=== PATIENT | female | born 1970 | race Caucasian/White ===

== ENCOUNTER → 2016-05-14 | Outpatient (CLI) | payer OTHER ==
[~2016-05-14] MED LIST: DULO60CA44 PO; FOLI1TAB7 PO; LEVO25TA PO; METHOTREXATE INJ; MONT1TAB3 PO
[2016-05-14 08:24] LABS: BASO % 0.1 %; BASO ABS # 0.01 K/uL (0-0.2); COMPLETE YES; EOS % 0.4 %; HEMATOCRIT 41.1 % (37-47); IG% 0.4 %; LYMPH % 15.3 %; LYMPH ABS # 1.75 K/uL (1.2-3.4); MEAN CELL VOLUME 92.8 fL (80-100); MEAN CORPUSCULAR HEMOGLOBIN 32.1 pg (25-34); MEAN CORPUSCULAR HGB CONC 34.5 g/dl (32-36); MEAN PLATELET VOLUME 9.5 fL (7.4-10.4); MONO % 9.8 %; PLATELET COUNT 217 K/uL (130-400); RED BLOOD COUNT 4.43 M/uL (4.2-5.4); WHITE BLOOD COUNT 11.41 K/uL (4.8-10.8)
[2016-05-14 08:41] LABS: ALT/SGPT 27 U/L (12-78); BLOOD UREA NITROGEN 16 mg/dl (7-18); BUN/CREATININE RATIO 22.6 (10-20); CALCIUM 8.6 mg/dl (8.5-10.1); CARBON DIOXIDE 29 mmol/L (21-32); CHLORIDE 102 mmol/L (98-107); GLUCOSE 97 mg/dl (70-99); POTASSIUM 3.5 mmol/L (3.5-5.1); SODIUM 139 mmol/L (136-145)
[2016-05-14 08:44] LABS: ALB/GLOB RATIO 0.8 (0.9-2); ALKALINE PHOSPHATASE 60 U/L (45-117); AST/SGOT 14 U/L (15-37)
[2016-05-15 10:48] LABS: C-REACTIVE PROT HIGHSEN 14.9 MG/L
== END | disposition home or self-care (01) ==
LOC: C.LABSPEC 10:18
PROVIDERS: ATTEND Internal Medicine
DX: M06.4 Inflammatory polyarthropathy (principal)

== ENCOUNTER → 2016-06-04 | Outpatient (CLI) | payer OTHER ==
[2016-06-06 14:11] LABS: ANTI-SS-A <1.0 NEG AI (<1.0 NEG); ANTI-SS-B <1.0 NEG AI (<1.0 NEG)
== END | disposition home or self-care (01) ==
LOC: C.LAB 09:52
PROVIDERS: ATTEND Internal Medicine
DX: M35.00 Sjogren syndrome, unspecified (principal)

== ENCOUNTER → 2016-08-29 | Outpatient (CLI) | payer OTHER ==
[2016-08-29 10:46] LABS: MEAN CELL VOLUME 97.7 fL (80-100); MEAN CORPUSCULAR HEMOGLOBIN 34.3 pg (25-34); MEAN CORPUSCULAR HGB CONC 35.1 g/dl (32-36); MEAN PLATELET VOLUME 9.5 fL (7.4-10.4); PLATELET COUNT 248 K/uL (130-400); RED BLOOD COUNT 3.99 M/uL (4.2-5.4); WHITE BLOOD COUNT 10.56 K/uL (4.8-10.8)
[2016-08-29 11:20] LABS: ALT/SGPT 23 U/L (12-78); BLOOD UREA NITROGEN 13 mg/dl (7-18); BUN/CREATININE RATIO 18.8 (10-20); CARBON DIOXIDE 23 mmol/L (21-32); CHLORIDE 106 mmol/L (98-107); CREATININE 0.69 mg/dl (0.60-1.20); GLUCOSE 99 mg/dl (70-99); POTASSIUM 3.9 mmol/L (3.5-5.1); SODIUM 139 mmol/L (136-145); URIC ACID 4.3 mg/dl (2.6-7.2)
[2016-08-29 11:31] LABS: ALB/GLOB RATIO 0.9 (0.9-2); ALKALINE PHOSPHATASE 57 U/L (45-117); AST/SGOT 13 U/L (15-37); RHEUMATOID FACTOR < 10.0 U/mL (0-15); THYROID STIMULATING HORMONE 0.978 uIu/ml (0.300-4.500)
[2016-09-01 11:21] LABS: 18KDIGG BAND NONREACTIVE (NONREACTIVE); 23KDIGG BAND NONREACTIVE (NONREACTIVE); 23KDIGM BAND REACTIVE (NONREACTIVE); 28KDIGG BAND NONREACTIVE (NONREACTIVE); 30KDIGG BAND NONREACTIVE (NONREACTIVE); 39KDIGG BAND NONREACTIVE (NONREACTIVE); 39KDIGM BAND NONREACTIVE (NONREACTIVE); 41KDIGG BAND REACTIVE (NONREACTIVE); 41KDIGM BAND REACTIVE (NONREACTIVE); 45KDIGG BAND NONREACTIVE (NONREACTIVE); 58KDIGG BAND NONREACTIVE (NONREACTIVE); 66KDIGG BAND REACTIVE (NONREACTIVE); 93KDIGG BAND NONREACTIVE (NONREACTIVE)
[2016-09-05 23:31] LABS: CYTOMEGALOVIRUS IGG AB <0.60 U/ML; EHRLICHIA CHAFF IGG AB <1:64 (<1:64); EHRLICHIA CHAFF IGM AB <1:20 (<1:20)
[2016-09-08 12:50] LABS: REFERENCE QUEST TEST REPORT
== END | disposition home or self-care (01) ==
LOC: C.LAB 12:53
PROVIDERS: ATTEND Internal Medicine
DX: A69.20 Lyme disease, unspecified (principal); M25.50 Pain in unspecified joint; R53.83 Other fatigue

== ENCOUNTER → 2016-10-07 | Outpatient (CLI) | payer OTHER ==
[2016-10-07 15:02] LABS: ESTIMATED AVERAGE GLUCOSE 105 mg/dl; HA1C FLAG Normal (Normal)
[2016-10-07 15:12] LABS: BLOOD UREA NITROGEN 11 mg/dl (7-18); GLUCOSE 82 mg/dl (70-99); RHEUMATOID FACTOR < 10.0 U/mL (0-15)
[2016-10-07 15:23] LABS: THYROID STIMULATING HORMONE 0.871 uIu/ml (0.300-4.500)
--- NOTE | 2016-11-01 09:12 | CODING QUERY NO DIAGNOSIS ---
TREATMENT RENDERED WITHOUT A DIAGNOSIS To promote full compliance with coding requirements relating to patient care, physician participation is requested in all cases of anesthesiology fellow uncertainty. Please assist us with providing a diagnosis/symptom for the test(s) below: A diagnosis/symptom was not documented on your Order. A valid diagnosis/symptom is required to bill all insurances. Please remember that we are unable to code a diagnosis of rule out, probable, possible, questionable, or suspected. Tests that require a diagnosis: * SAHIL SCREEN DIAGNOSIS: * BLOOD UREA NITROGEN DIAGNOSIS: * CREATININE DIAGNOSIS: * GLUCOSE DIAGNOSIS: * RHEUMATOID FACTOR DIAGNOSIS: * TSH DIAGNOSIS: * ERYTHROCYTE SEDIMENTATION RATE DIAGNOSIS: * HEMOGLOBIN A1C DIAGNOSIS: * VITAMIN B12 DIAGNOSIS: Provider Signature: Date: Thank you Ruth Sims [employer] Once completed, please kindly fax back to [phone] For questions please call [phone]
== END | disposition home or self-care (01) ==
LOC: C.LAB 16:38
PROVIDERS: ATTEND Podiatrist Foot & Ankle Surgery
DX: M77.32 Calcaneal spur, left foot (principal); M72.2 Plantar fascial fibromatosis; M05.672 Rheumatoid arthritis of left ankle and foot with involvement of other organs and systems; R26.2 Difficulty in walking, not elsewhere classified

== ENCOUNTER → 2016-10-29 | Outpatient (CLI) | payer OTHER ==
--- NOTE | 2016-10-29 11:34 | DIAGNOSTIC IMAGING REPORT ---
MRI OF THE LEFT ANKLE/HINDFOOT WITHOUT CONTRAST CLINICAL HISTORY: Left ankle and foot pain. COMPARISON STUDY: None. TECHNIQUE: Utilizing a 1.5 Makenzie magnet and dedicated coil, multiplanar, multiecho imaging of the left ankle and hindfoot was performed without intravenous or intraarticular contrast. In addition, coronal T1 and STIR imaging of the entire left foot was performed. FINDINGS: Alignment of the left ankle is anatomic. Talar dome is intact. No osteochondral abnormality is present. Achilles tendon is normal. There is minimal posterior calcaneal spurring. Moderate plantar calcaneal spurring is noted with minimal increased T2 signal adjacent to the proximal plantar fascia. The findings may reflect mild plantar fasciitis. There is minimal increased signal within the adjacent calcaneus. No fracture or suspicious marrow replacement is present. Tarsometatarsal joints are intact. Flexor, extensor and peroneal tendons are intact. There is moderate subcutaneous edema of the left ankle and hindfoot as well as mild subcutaneous edema of the dorsal left midfoot. No erosions are identified by MRI. No mass or fluid collection is identified on this examination. Intrinsic ligaments of the left ankle appear intact. IMPRESSION: 1. Moderate plantar calcaneal spurring with minimal increased T2 signal within the adjacent soft tissues/calcaneus. The findings may reflect mild plantar fasciitis. 2. Moderate subcutaneous edema of the left ankle/hindfoot. 3. No fracture. Intact flexor, extensor and peroneal tendons. Electronically signed by: Roderick Harrison M.D. 10/29/2016 11:32 AM Dictated Date/Time: 10/29/2016 11:22 AM
== END | disposition home or self-care (01) ==
LOC: C.MRI 09:37
PROVIDERS: ATTEND Podiatrist Foot & Ankle Surgery
DX: M25.872 Other specified joint disorders, left ankle and foot (principal); M76.892 Other specified enthesopathies of left lower limb, excluding foot; M77.32 Calcaneal spur, left foot

== ENCOUNTER → 2016-11-18 | Day surgery (SDC) | payer OTHER ==
[2016-11-13 10:11] VITALS: BMI 44.0
--- NOTE | 2016-11-17 09:53 | HISTORY & PHYSICAL EXAMINATION ---
DATE OF ADMISSION: 11/18/2016 HISTORY OF PRESENT ILLNESS: A 46-year-old female presents for followup evaluation of ankle pain, requesting surgical intervention. Condition is located on the left ankle. Pain is described as aching, constant sharp with soreness at all times. She rates this discomfort as a 7 on a 10 point scale on the left ankle. She is experiencing aching and swelling throughout the day. She notes that she has been having problems on and off with her left ankle for about 2 years. She was first diagnosed with rheumatoid arthritis 8 months ago. She notes left ankle joint is the most painful for her. She also notes knee pain. She notes injection did not help the condition, NSIDS did not help the condition, and strapping did not help the condition. All other treatments have included MRI, radiographs in nature and severity of pain and discomfort, she is requesting surgical intervention. PAST SURGICAL HISTORY: Gallbladder removal in 1994, hysterectomy in 2008. PAST MEDICAL HISTORY: Lyme disease, asthma, rheumatoid arthritis, depression, anxiety disorder. MEDICATIONS: Synthroid; folic acid; Singulair; methotrexate; Cymbalta, capsulitis. ALLERGIES: No known medical allergies. FAMILY HISTORY: Arthritis, Alzheimer's disease, anxiety, stress disorder, depression, diabetes, heart problems, heart attack, hypertension, high cholesterol, stroke. SOCIAL HISTORY: The patient admits to alcohol use, drinking described as social. REVIEW OF SYSTEMS: Unremarkable except chief complaint. PHYSICAL EXAMINATION: VITAL SIGNS: BP 112/68. Height 5 feet 6 inches, weight 312 pounds, body mass index 50. CONSTITUTIONAL: The patient appears well-developed and nourished with good attention to body grooming and habitus. HEAD AND FACE: Head is normocephalic and atraumatic without any gross head, face, or neck masses. EYES: Conjunctival and pupillary accommodation is normal. EARS, NOSE, MOUTH, AND THROAT: Unremarkable. NECK: Neck is supple. Trachea is midline without any adenopathy or crepitance palpable. CARDIOVASCULAR: Normal S1, S2 without murmur, gallops, rubs, or clicks noted. Cardiovascular exam is normal. RESPIRATORY: Chest is symmetric. No scars are visible. No port or pacemaker. LUNGS: Clear to auscultation bilaterally and equal. GASTROINTESTINAL: Abdominal organs, bladder, and kidneys show no abnormalities, masses, tenderness, or rigidity. LYMPHATIC: No popliteal, inguinal, or supraclavicular lymphadenopathy noted. LOWER EXTREMITY VASCULAR: DP palpable. PT palpable. DERMATOLOGIC: No skin rash, subcutaneous nodules, lesions, or ulcers observed. NEUROLOGICAL: Touch, pin, vibratory pain, proprioception sensations are normal. Deep tendon reflexes normal. MUSCULOSKELETAL: Muscle tone is normal. Muscle strength 5/5 all groups tested and anterior left lateral malleolus shows evidence of capsulitis with pain, diffuse over the joint swelling with decreased range of motion. Examination of the heel the plantar medial aspect of the calcaneus on the left, pain on deep palpation, decreased ankle joint range of motion with knee flexed and extended. DATA: MRI of the left ankle on 10/29/2016 shows minimal posterior calcaneal spur and moderate plantar calcaneal with signal, adjacent soft tissue in the calcaneus, findings may reflect plantar fasciitis. IMPRESSION: 1. Ankle joint capsulitis, left. 2. Degenerative joint disease, left. 3. Rheumatoid arthritis with involvement left ankle. 4. Heel spur syndrome, left. 5. Plantar fasciitis, left. 6. Equinus. 7. Difficulty walking. 8. Pain lower extremity. PLAN: I discussed the most common etiology of discomfort. Treatment consisted of rest, ice, analgesics, nonsteroidal, physical therapy, steroid injections and orthotics. Due to the nature and severity of the discomfort, she is requesting surgical intervention. She is aware of the surgery will not improved heel pain; however, she notes all of her symptoms and the majority of her symptoms are located in the left ankle. This is being performed for relief and diagnostic purposes. Procedures to be performed; surgical arthroscopy with extensive debridement and possible open arthrotomy, left ankle. This will be performed under general anesthesia as an outpatient at the hospital. The procedure, risks and complications were fully reviewed with the patient. Consent form, foot diagram and illustration reviewed in their entirety. All the patient's questions were answered. Complications were discussed in detail with the patient including pain, infection, swelling that may or may not be excessive, pins and needles feeling, numbness, metatarsalgia, excessive bleeding, delay or nonhealing bone, delay or nonhealing of skin, enlarged scar, failure of the procedure, reoccurrence or worsening condition which may or may not require further surgery, adverse reaction to anesthesia, allergic reaction to suture or other implant material. The patient will be required to be in a shoe for a minimum of 1-2 weeks and not return to sneaker for 2-4 weeks depending on the postop edema. She is aware this is an elective procedure and I recommend a second opinion. The patient understood. Consent form was signed with a copy of the foot diagram and illustration given to patient. Verbal and written postop instructions were given. The patient's insurance will not cover CPM machine immediately postoperatively, so will defer that treatment at this time. The patient will return to the office for postop check or sooner if medically necessary. Instructed to keep dressing clean, dry and intact until seen at the office. At time of the preoperative appointment, prescriptions for Keflex and Percocet were dispensed. NATALIE
[~2016-11-18] VITALS: Ht 167.6 cm; Wt 125.0 kg
[~2016-11-18] MED LIST changes: +ATROPINE SULFATE 0.1 MG/ML 5ML SYR IV PRN; +BUPIVACAINE 0.5 % 5 MG/1 ML MPF 30ML VIAL ONE; +CEFAZOLIN 3000 MG/65 ML D5W IV SCH; +DEXAMETHASONE SOD INJ 4 MG/ML VIAL ONE; +EpHEDrine SULFATE INJ 50 MG/ML AMP IV PRN; +FENTANYL CITRATE INJ 50 MCG/1 ML 2 ML VIAL IV PRN; +FENTANYL CITRATE INJ 50 MCG/1 ML 2 ML VIAL ONE; +HYDROmorphone INJ 1 MG/ML SYR IV PRN; +LACTATED RINGER'S 1000ML 1,000 ML IV SCH; +LACTATED RINGER'S 1000ML 500 ML IV ONE; +LIDOCAINE HCL 2% 2 ML VIAL (20MG/ML) ONE; +LIDOCAINE HCL 2% LOCAL 50ML VIAL ONE; +LIDOCAINE/EPINEPHRINE 1% 20 ML VIAL ONE; +MIDAZOLAM HCL 1 MG/ML 2ML VIAL ONE; +ONDANSETRON INJ 2 MG/ML 2 ML VIAL IV PRN; +ONDANSETRON INJ 2 MG/ML 2 ML VIAL ONE; +PROPOFOL IV EMULSION 10 MG/ML 100 ML VIAL IV ONE; +PROPOFOL IV EMULSION 10 MG/ML 20 ML VIAL IV ONE; +ROPIVACAINE 0.5% 5 MG/ML 30 ML VIAL ONE; +SODIUM CHLORIDE 0.9% 1000ML 1,000 ML IV SCH; +SODIUM CHLORIDE 0.9% 1000ML IV SCH
[2016-11-18 05:45] VITALS: BP 135/79; PULSE 79; TEMP 37.2; O2SAT 96; Ht 167.6 cm; Wt 125.0 kg
--- NOTE | 2016-11-18 06:54 | History & Physical Bridge Note ---
H&P Re-Evaluation Bridge Note: I have examined the patient, reviewed the History & Physical and in the interval since the performance of the History & Physical I have noted the following changes of clinical significance: No changes noted
--- NOTE | 2016-11-18 06:58 | Discharge Instructions ---
Discharge Instructions Date of Service Nov 18, 2016. Visit Reason for Visit: Left Ankle Djd, Rheumotoid Arthritis, Capsulitis Discharge Discharge Diagnosis / Problem: same as above Discharge Goals Goal(s): Decrease discomfort Activity Recommendations Activity Limitations: as noted below Medications: * Resume previous medications unless instructed by your surgeon. * Take your medications as prescribed. Call our office ([phone]) at any time, if you experience severe pain that does not subside shortly after taking your pain medication. Activity: * You may walk on your operated foot/ankle using the surgical shoe or cast/splint. Do not put any weight on your operated foot/ankle without wearing the surgical shoe or cast sandal.. Special Care: * Keep your bandage clean and dry. Do not remove your bandage unless otherwise instructed. A small amount of blood may appear on the bandage over the surgical site. Call our office ([phone]) if you bandage becomes blood-soaked or wet. * Elevate your operated foot/ankle on pillows, above the level of your heart, as often as possible during the first 2-3 days following surgery. Keep your knee flexed slightly with a pillow under your knee when you elevate your foot/ankle. * Apply a ice bag to your foot/ankle over the operative site for 20-30 minutes out of each hour while you are awake. Do not allow the ice bag to directly contact bare skin. * Avoid bumping or handling any pins visible in your toes. If any pin feels or appears loose, call the office ([phone]). * Take your oral temperature in the morning and at bedtime. Call our office ([phone]) if your temperature rises above 101 degrees Fahrenheit. Call your surgeon's office at ([phone]) for any problems or concerns such as excessive bleeding and/or pain unrelieved by your prescribed pain medications. If you have any questions, please do not hesitate to ask them. Avoid all tobacco products. If you need help to stop smoking, call [place] FREE QUITLINE at . This is a free call. Follow-up: Follow-up with Dr. Kerns Anesthesia . Post Anesthesia Instructions: If you have had General Anesthesia or IV Sedation: * Do not drive today. * Resume driving when surgeon permits. * Do not make important decisions or sign legal documents today. * Call surgeon for: 1. Temperature elevations greater than 101 degrees F. 2. Uncontrollable pain. 3. Excessive bleeding. 4. Persistent nausea and vomiting. 5. Medication intolerance (nausea, vomiting or rash). * For nausea and vomiting use only clear liquids such as: tea, soda, bouillon until nausea subsides, then gradually increase diet as tolerated. * If you have any concerns or questions, call your surgeon's office. If physician is unavailable and it is an emergency, call 911 or go to the nearest emergency room. . Diet Recommendations Recommended Home Diet: resume previous diet Pending Studies Studies pending at discharge: no Medical Emergencies . Who to Call and When: Medical Emergencies: If at any time you feel your situation is an emergency, please call 911 immediately. . Non-Emergent Contact Non-Emergency issues call your: Primary Care Provider . . "Provider Documentation" section prepared by Geri Daly. .
--- NOTE | 2016-11-18 10:21 | Anesthesiology Progress Note ---
Anesthesia Post Op Note Date & Time Nov 18, 2016 at 10:21 Vital Signs Pain Intensity: 0 Vital Signs Past 12 Hours Date Time Temp Pulse Resp B/P (MAP) Pulse Ox O2 Delivery O2 Flow Rate FiO2 11/18/16 10:10 100 16 157/84 95 Room Air 11/18/16 10:00 99 16 152/85 97 Room Air 11/18/16 09:50 101 16 146/85 100 Oxymask 10 11/18/16 09:43 36.2 110 16 136/90 99 Oxymask 10 11/18/16 05:45 37.2 79 20 135/79 (97) 96 Room Air Notes Mental Status: alert / awake / arousable, participated in evaluation Pt Amnestic to Procedure: Yes Nausea / Vomiting: adequately controlled Pain: adequately controlled Airway Patency, RR, SpO2: stable & adequate BP & HR: stable & adequate Hydration State: stable & adequate Anesthetic Complications: no major complications apparent
[2016-11-18 10:35] VITALS: BP 131/82; PULSE 100; TEMP 36.5; O2SAT 94
[2016-11-18 11:04] VITALS: BP 131/87; PULSE 104; O2SAT 93
[2016-11-18 11:35] VITALS: BP 123/71; PULSE 96; TEMP 37; O2SAT 93
--- NOTE | 2016-11-18 18:46 | OPERATIVE REPORT ---
DATE OF OPERATION: 11/18/2016 SURGEON: Dr. Kerns. PREOPERATIVE DIAGNOSES: 1. Capsulitis ankle joint. 2. Degenerative joint disease, ankle joint. POSTOPERATIVE DIAGNOSES: 1. Same as above with osteochondritis dissecans. 2. Intra-articular plate fracture lateral talar dome. 3. Talar dome fracture transcondylar medial x3. 4. Soft tissue mass. 5. Adhesive with traumatic capsulitis. PROCEDURE: 1. Surgical arthroscopy, left ankle with extensive debridement. 2. Repair large osteochondral fracture of talar dome, left without fixation. 3. Biopsy of soft tissue mass. ANESTHESIA: General injectables 1 mL lidocaine with 1:1000 epinephrine, total of 20 mL intra-articular preop. Postoperatively intra-articular injection of dexamethasone sodium phosphate 4 mg per mL, total of 2 mL, 0.5% Marcaine plain postoperatively. Ankle block performed with 30 mL 0.5% Marcaine plain. HEMOSTASIS: None. ESTIMATED BLOOD LOSS: Minimal. HISTOPATHOLOGY: Soft tissue mass, intraarticular fluid was sent. FINDINGS: There were multiple osteochondral fractures in the talar dome. There are specific 3 fracture transcondylar fractures medial talar dome and a flake contracture noted over the lateral talar dome of the talus, tibia cartilage was intact, large amount of hypertrophic synovium. COMPLICATIONS: None. DESCRIPTION OF PROCEDURE: The patient was brought to the OR and placed on the OR table in supine position. Upon completion of general anesthesia by a well-padded thigh tourniquet was applied to the left lower extremity. It should be noted that preoperatively all precautions for malignant hyperthermia protocol were followed out. 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 All ventilations were fully flushed prior to start of the procedure. The left extremity was scrubbed, prepped and draped in the usual aseptic fashion. Attention was directed to the medial aspect of the left ankle joint, medial to tibialis anterior and inferior to the joint line, a small stab incision was made after being carefully drawn out. Also, a lateral stab incision was made using a 15 blade just lateral to the extensor tendons and peroneus tertius inferior to the joint line. Prior to the incision, the joint was inflated with 20 mL of 1% with 1:1000 epinephrine. Upon placement of the camera in the lateral portal karlaer shaver was placed in the medial portal. It should be noted that the ankle joint was placed in a noninvasive Ricardo distractor at this point. There was a large amount of cartilage surface was examined both inferior and superior aspects. There was transcondylar fractures noted at the talus that were repaired through a specific 3 fracture lines noted, medial talar dome. This was abraded with a large amount of hypertrophic synovium over the medial aspect of the joint. The osteochondral fractures were stable, although were through and through down to the subchondral bone. This was not abraded all the way to subchondral bone just to a point of stability. Large amount of hypertrophic synovium was abraded with a wand and with a 3-0 saber shaver. The camera and the shaver were switched, the lateral surface showed a flake fracture of the lateral talus. This was not through and through was down to cartilage. This was abraded and repaired using 3-0 saber shaver. A large amount of hypertrophic synovium was abraded with an Arthrex wand and saber shaver. The operative joint was inspected, large amount of hypertrophic synovium was abraded both medial and laterally. It should also be noted that the tibial surface was intact. Upon entry of the joint, there was a large red pigmented soft tissue mass that was a bit stable. This mass was biopsied and intra-articular fluid was also sent to histopathology, appeared to be a traumatic; however, did not appear as a clot was more of a soft tissue through and through questionable early inflammatory nodule, possibly some secondary arthritis, unsure of etiology, sent to histopathology. Upon completion of the scope, the shaver and the camera were removed. The wound was copiously lavaged, skin margins were repaired using 3-0 Vicryl in a Skin margins were closed using 4-0 nylon. Ankle block was performed with 30 mL 0.5% Marcaine plain and intra-articular steroid injection of 2 mL of dexamethasone sodium phosphate was infiltrated into the joint. Dry sterile compressive dressing consisting of Adaptic Webril, Kerlix and an Juma was applied. It should be noted that a well-padded tourniquet was then placed; however, not inflated throughout the procedure. The patient was transported to recovery room with vital signs stable and neurovascular status intact. I attest to the content of the Intraoperative Record and any orders documented therein. Any exceptions are noted below. POONAMD
== END | disposition home or self-care (01) ==
LOC: C.ACU 04:58
PROVIDERS: ATTEND Podiatrist Foot & Ankle Surgery
DX: M65.872 Other synovitis and tenosynovitis, left ankle and foot (principal); M77.52 Other enthesopathy of left foot and ankle; M93.272 Osteochondritis dissecans, left ankle and joints of left foot; S92.142A Displaced dome fracture of left talus, initial encounter for closed fracture; X58.XXXA Exposure to other specified factors, initial encounter; J45.909 Unspecified asthma, uncomplicated; M06.9 Rheumatoid arthritis, unspecified; F32.9 Major depressive disorder, single episode, unspecified; F41.9 Anxiety disorder, unspecified; Z79.899 Other long term (current) drug therapy

== ENCOUNTER → 2017-02-27 | Outpatient (CLI) | payer OTHER ==
[~2017-02-27] MED LIST changes: -ATROPINE SULFATE 0.1 MG/ML 5ML SYR IV PRN; -BUPIVACAINE 0.5 % 5 MG/1 ML MPF 30ML VIAL ONE; -CEFAZOLIN 3000 MG/65 ML D5W IV SCH; -DEXAMETHASONE SOD INJ 4 MG/ML VIAL ONE; -EpHEDrine SULFATE INJ 50 MG/ML AMP IV PRN; -FENTANYL CITRATE INJ 50 MCG/1 ML 2 ML VIAL IV PRN; -FENTANYL CITRATE INJ 50 MCG/1 ML 2 ML VIAL ONE; -FOLI1TAB7 PO; +FOLI1TAB8 PO; -HYDROmorphone INJ 1 MG/ML SYR IV PRN; -LACTATED RINGER'S 1000ML 1,000 ML IV SCH; -LACTATED RINGER'S 1000ML 500 ML IV ONE; -LIDOCAINE HCL 2% 2 ML VIAL (20MG/ML) ONE; -LIDOCAINE HCL 2% LOCAL 50ML VIAL ONE; -LIDOCAINE/EPINEPHRINE 1% 20 ML VIAL ONE; -MIDAZOLAM HCL 1 MG/ML 2ML VIAL ONE; -ONDANSETRON INJ 2 MG/ML 2 ML VIAL IV PRN; -ONDANSETRON INJ 2 MG/ML 2 ML VIAL ONE; -PROPOFOL IV EMULSION 10 MG/ML 100 ML VIAL IV ONE; -PROPOFOL IV EMULSION 10 MG/ML 20 ML VIAL IV ONE; -ROPIVACAINE 0.5% 5 MG/ML 30 ML VIAL ONE; -SODIUM CHLORIDE 0.9% 1000ML 1,000 ML IV SCH; -SODIUM CHLORIDE 0.9% 1000ML IV SCH
[2017-02-27 08:34] LABS: BASO % 0.2 %; BASO ABS # 0.02 K/uL (0-0.2); EOS % 1.1 %; HEMATOCRIT 41.5 % (37-47); HEMOGLOBIN 14.1 g/dL (12.0-16.0); IG# 0.02 K/uL (0.00-0.02); LYMPH % 20.8 %; LYMPH ABS # 1.88 K/uL (1.2-3.4); MEAN CELL VOLUME 96.3 fL (80-100); MEAN CORPUSCULAR HEMOGLOBIN 32.7 pg (25-34); MEAN PLATELET VOLUME 9.8 fL (7.4-10.4); MONO % 7.5 %; MONO ABS # 0.68 K/uL (0.11-0.59); NEUT % 70.2 %; NEUT ABS # 6.35 K/uL (1.4-6.5); PLATELET COUNT 220 K/uL (130-400); RED CELL DISTRIBUTION WIDTH CV 13.5 % (11.5-14.5); RED CELL DISTRIBUTION WIDTH SD 47.8 fL (36.4-46.3); WHITE BLOOD COUNT 9.05 K/uL (4.8-10.8)
[2017-02-27 08:47] LABS: ALBUMIN 3.5 gm/dl (3.4-5.0); ALT/SGPT 25 U/L (12-78); BLOOD UREA NITROGEN 14 mg/dl (7-18); CALCIUM 8.7 mg/dl (8.5-10.1); CARBON DIOXIDE 27 mmol/L (21-32); CHOLESTEROL 201 mg/dl (0-200); CREATININE 0.66 mg/dl (0.60-1.20); GLUCOSE 101 mg/dl (70-99); POTASSIUM 4.1 mmol/L (3.5-5.1); SODIUM 138 mmol/L (136-145); URIC ACID 4.5 mg/dl (2.6-7.2)
[2017-02-27 08:58] LABS: ALKALINE PHOSPHATASE 73 U/L (45-117); AST/SGOT 13 U/L (15-37); LDL CHOLESTEROL CALCULATED 119 mg/dl; TOTAL PROTEIN 7.9 gm/dl (6.4-8.2)
== END | disposition home or self-care (01) ==
LOC: C.LAB 17:46
PROVIDERS: ATTEND Internal Medicine
DX: Z01.818 Encounter for other preprocedural examination (principal); A69.20 Lyme disease, unspecified; Z79.2 Long term (current) use of antibiotics; R53.83 Other fatigue; J45.909 Unspecified asthma, uncomplicated; M60.9 Myositis, unspecified; Q66.52 Congenital pes planus, left foot; K21.0 Gastro-esophageal reflux disease with esophagitis; E03.1 Congenital hypothyroidism without goiter; I10 Essential (primary) hypertension; E78.00 Pure hypercholesterolemia, unspecified; Z51.81 Encounter for therapeutic drug level monitoring

== ENCOUNTER → 2017-06-23 | Outpatient (CLI) | payer OTHER ==
[2017-06-23 09:29] LABS: HEMOGLOBIN 14.2 g/dL (12.0-16.0); MEAN CELL VOLUME 93.8 fL (80-100); MEAN CORPUSCULAR HEMOGLOBIN 31.7 pg (25-34); MEAN CORPUSCULAR HGB CONC 33.8 g/dl (32-36); MEAN PLATELET VOLUME 10.2 fL (7.4-10.4); PLATELET COUNT 225 K/uL (130-400); RED CELL DISTRIBUTION WIDTH CV 13.7 % (11.5-14.5); RED CELL DISTRIBUTION WIDTH SD 46.8 fL (36.4-46.3); WHITE BLOOD COUNT 8.01 K/uL (4.8-10.8)
[2017-06-23 09:47] LABS: ALBUMIN 3.3 gm/dl (3.4-5.0); ALT/SGPT 28 U/L (12-78); AST/SGOT 15 U/L (15-37); BLOOD UREA NITROGEN 11 mg/dl (7-18); CALCIUM 8.8 mg/dl (8.5-10.1); CARBON DIOXIDE 30 mmol/L (21-32); CREATININE 0.67 mg/dl (0.60-1.20); GLUCOSE 78 mg/dl (70-99); POTASSIUM 3.6 mmol/L (3.5-5.1); SODIUM 138 mmol/L (136-145); URIC ACID 4.8 mg/dl (2.6-7.2)
[2017-06-23 09:50] LABS: ALKALINE PHOSPHATASE 74 U/L (45-117); TOTAL PROTEIN 7.6 gm/dl (6.4-8.2)
== END | disposition home or self-care (01) ==
LOC: C.LAB 10:31
PROVIDERS: ATTEND Internal Medicine
DX: A69.20 Lyme disease, unspecified (principal); Z79.2 Long term (current) use of antibiotics; R53.83 Other fatigue